=== PATIENT | female | born 1940 | race Two or more races ===

== ENCOUNTER 2023-09-17 09:26 | Emergency (ER) | payer OTHER ==
[~2023-09-17] VITALS: Ht 177.8 cm; Wt 83.6 kg
[2023-09-17 10:43] VITALS: BP 109/54; PULSE 65; RESP 18; TEMP 97; O2SAT 97
[2023-09-17 12:01] LABS: Rapid Influenza A Negative (Negative); Rapid Influenza B Negative (Negative)
[2023-09-17 12:05] LABS: COVID19 ANTIGEN SOFIA FIA POSITIVE (NEGATIVE)
[2023-09-17] MEDS ORDERED: BENZ100C97 PO (12:38)
[2023-09-17] MEDS ORDERED: AZIT-81 PO (12:38)
[2023-09-17] MEDS ORDERED: ACET500T58 PO (12:38)
== END 2023-09-17 12:56 | disposition home or self-care (01) ==
LOC: ER 09:26
DX: U07.1 COVID-19 (principal); B34.9 Viral infection, unspecified
CPT/HCPCS: 36415; 71045; 87426; 87804